=== PATIENT | female | born 1955 | race Caucasian/White ===

== ENCOUNTER → 2018-01-16 | Outpatient (CLI) | payer BC ==
--- NOTE | 2018-01-19 09:59 | MM ---
Reason for exam: screening (asymptomatic). Last mammogram was performed 3 years and 5 months ago. History: Family history of breast cancer in 2 aunts and breast cancer in 2 cousins. Physical Findings: A clinical breast exam by your physician is recommended on an annual basis and results should be correlated with mammographic findings. MG Screening Mammo w CAD Bilateral CC and MLO view(s) were taken. Prior study comparison: August 23, 2014, bilateral MG screening mammo w CAD. December 21, 2008, mammogram, performed at [facility]. There are scattered fibroglandular densities. No significant changes when compared with prior studies. ASSESSMENT: Benign, BI-RAD 2 RECOMMENDATION: Routine screening mammogram of both breasts in 1 year.
== END | disposition home or self-care (01) ==
LOC: RADMAMWWP 07:38
PROVIDERS: ATTEND Family Medicine
DX: Z12.31 Encounter for screening mammogram for malignant neoplasm of breast (principal)
CPT/HCPCS: 77067

== ENCOUNTER → 2018-11-11 | Outpatient (CLI) | payer MEDICARE ==
[2018-11-12 01:33] LABS: Dermato. farinae IgE <0.10 kU/L
[2018-11-12 01:34] LABS: Cat Epith & Dander IgE <0.10 kU/L; Dog Dander IgE <0.10 kU/L
[2018-11-12 01:35] LABS: Alternaria alternata IgE <0.10 kU/L; Aspergillus fumagatus IgE <0.10 kU/L; Cockroach IgE <0.10 kU/L
[2018-11-12 01:36] LABS: Birch IgE <0.10 kU/L; Elm IgE <0.10 kU/L; Maple (Box Elder) IgE <0.10 kU/L; Oak IgE <0.10 kU/L
[2018-11-12 01:37] LABS: Ragweed,Common IgE <0.10 kU/L; Red Top (Bentgrass) IgE <0.10 kU/L
[2018-11-12 01:39] LABS: Codfish IgE <0.10 kU/L
[2018-11-12 01:40] LABS: Clam IgE <0.10 kU/L; Peanut IgE <0.10 kU/L; Shrimp IgE <0.10 kU/L; Soybean IgE <0.10 kU/L; Walnut IgE (Food) <0.10 kU/L
[2018-11-12 01:41] LABS: Egg White IgE <0.10 kU/L; Scallop IgE <0.10 kU/L
== END | disposition home or self-care (01) ==
LOC: LABWHC1 16:09
PROVIDERS: ATTEND Internal Medicine Critical Care Medicine
DX: J45.909 Unspecified asthma, uncomplicated (principal)
CPT/HCPCS: 36415; 82785; 86003

== ENCOUNTER → 2020-01-20 | Outpatient (CLI) | payer MEDICARE ==
--- NOTE | 2020-01-20 12:21 | BD ---
EXAMINATION TYPE: Axial Bone Density DATE OF EXAM: 01/20/2020 COMPARISON: NONE CLINICAL HISTORY: Height: 5 FT 3 1/2 IN Weight: 176 FRAX RISK QUESTIONS: Alcohol (3 or more units per day): NO Family History (Parent hip fracture): NO Glucocorticoids (More than 3mos): NO (Ex: prednisone, prednisolone, methylprednisolone, dexamethasone, and hydrocortisone). History of Fracture in Adulthood: NO Secondary Osteoporosis: 1. Type 1 Diabetes: NO 2. Hyperthyroidism: NO 3. Menopause before 45: YES 4. Malnutrition: NO 5. Chronic liver disease: NO Rheumatoid Arthritis: NO Current Tobacco Use: NO RISK FACTORS HISTORY OF: Family History of Osteoporosis: NO Active: YES Postmenopausal woman: TOTAL HYST LATE 30'S Take estrogen and/or progesterone medications: TOOK FOR SEV YEARS AFTER HYST Lost more than 2 inches in height since high school: YES MEDICATIONS: Additional Medications: SINGULAIR, INHALERS FOR ASTHMA Additional History: EXAM MEASUREMENTS: Bone mineral densitometry was performed using the [employer] System. Bone mineral density as measured about the Lumbar spine is: ----- L1-L4(G/cm2): 1.141 T Score Values are as follows: ----- L2: -1.0 ----- L3: 0.2 ----- L4: 0.4 ----- L1-L4: -0.3 BASELINE Bone mineral density about the R hip (g/cm2): 0.909 Bone mineral density about the L hip (g/cm2): 0.940 T Score values are as follows: -----R Neck: -0.9 -----L Neck: -0.7 -----R Total: -0.5 -----L Total: -0.4 BASELINE IMPRESSION: No evidence for osteoporosis or osteopenia. NOTE: T-SCORE=SD OF THE YOUNG ADULT MEAN.
== END | disposition home or self-care (01) ==
LOC: RADBDWWP 08:40
PROVIDERS: ATTEND Family Medicine
DX: M81.0 Age-related osteoporosis without current pathological fracture (principal)
CPT/HCPCS: 77080

== ENCOUNTER → 2020-01-31 | Outpatient (CLI) | payer MEDICARE ==
--- NOTE | 2020-02-02 11:20 | MM ---
Reason for exam: screening (asymptomatic). Last mammogram was performed 2 years ago. History: Patient is postmenopausal. Family history of breast cancer in 2 aunts and breast cancer in 2 cousins. Took estrogen for 2 years beginning at age 28. Physical Findings: A clinical breast exam by your physician is recommended on an annual basis and results should be correlated with mammographic findings. MG Screening Mammo w CAD Bilateral CC and MLO view(s) were taken. Prior study comparison: January 16, 2018, bilateral MG screening mammo w CAD. August 23, 2014, bilateral MG screening mammo w CAD. The breast tissue is heterogeneously dense. This may lower the sensitivity of mammography. There is chronic nodularity in the right breast. No significant changes when compared with prior studies. ASSESSMENT: Benign, BI-RAD 2 RECOMMENDATION: Routine screening mammogram of both breasts in 1 year.
== END | disposition home or self-care (01) ==
LOC: RADMAMWWP 08:28
PROVIDERS: ATTEND Family Medicine
DX: Z12.31 Encounter for screening mammogram for malignant neoplasm of breast (principal)
CPT/HCPCS: 77067

== ENCOUNTER → 2021-01-30 | Outpatient (CLI) | payer MEDICARE ==
[2021-01-30 07:40] LABS: African American GFR (CKD) >90 (>60 ml/min/1.73 sqM); Blood Urea Nitrogen 9 mg/dL (7-17); Non-African American GFR(CKD) >90 (>60 ml/min/1.73 sqM)
--- NOTE | 2021-01-30 11:44 | CT ---
EXAMINATION TYPE: CT abdomen pelvis wo/w con DATE OF EXAM: 01/30/2021 COMPARISON: CT dated 11/19/2012 HISTORY: Diverticulosis, idiopathic pancreatitis CT DLP: 1157.20 mGycm Automated exposure control for dose reduction was used. TECHNIQUE: Helical acquisition of images was performed from the lung bases through the pelvis. CONTRAST: Performed with Oral Contrast and with IV Contrast, patient injected with 100 mL of Isovue 300. FINDINGS: LUNG BASES: No significant abnormality is appreciated. LIVER/GB: Low density within the liver may be due to underlying hepatic steatosis.. PANCREAS: No significant abnormality is seen. SPLEEN: No significant abnormality is seen. ADRENALS: No significant abnormality is seen. KIDNEYS: Cortical cyst noted within the midpole the right kidney measures approximately 13 mm, there is no hydronephrosis or nephrolithiasis. FREE AIR: No free air is visualized. RETROPERITONEAL ADENOPATHY: None visualized REPRODUCTIVE ORGANS: Not seen URINARY BLADDER: No significant abnormality is seen. PELVIC ADENOPATHY: None visualized. OSSEOUS STRUCTURES: There is a spinal curvature present. Degenerative disc changes and facet arthrop athy noted in the lumbar spine.. BOWEL: At the level of the right colon at the hepatic flexure there is some thickening of the ascend ing colon, proximal transverse colon not seen on prior CT.. OTHER: Contrast has not coursed throughout the colon due to timing of the exam IMPRESSION: INDETERMINATE RIGHT COLONIC WALL THICKENING, BOWEL SURVEILLANCE HAS NOT BEEN PERFORMED IT SHOULD BE C ONSIDERED TO EXCLUDE AN UNDERLYING MASS. POSTOP CHANGES.
== END | disposition home or self-care (01) ==
LOC: RADCTMAIN 05:58
PROVIDERS: ATTEND Family Medicine
DX: K57.90 Diverticulosis of intestine, part unspecified, without perforation or abscess without bleeding (principal); K85.00 Idiopathic acute pancreatitis without necrosis or infection
CPT/HCPCS: 82565; 84520; 74178; 36415; Q9967 ×2

== ENCOUNTER → 2021-08-31 | Outpatient (CLI) | payer MEDICARE ==
[2021-08-31 11:39] LABS: Partial Thromboplastin Time 27.8 sec (22.0-30.0); Prothrombin Time 11.3 sec (9.0-12.0)
[2021-08-31 16:03] LABS: Basophils # (A) 0.04 X 10*3/uL (0.00-0.10); Basophils % (A) 0.8 %; Eosinophils # (A) 0.05 X 10*3/uL (0.04-0.35); HCT 47.4 % (37.2-46.3); HGB 14.9 g/dL (12.0-15.0); Immature Grans, Automated 0.2 %; Lymphocytes # (A) 1.52 X 10*3/uL (0.90-5.00); Lymphocytes % (A) 29.1 %; MCH 30.1 pg (27.0-32.0); MCHC 31.4 g/dL (32.0-37.0); MCV 95.8 fL (80.0-97.0); Mean Platelet Volume 9.6 fL (9.5-12.2); Monocytes # (A) 0.38 X 10*3/uL (0.20-1.00); Monocytes % (A) 7.3 %; NRBC Per 100 WBC 0 /100 WBCS (0.0-0.0); Neutrophils # (A) 3.23 X 10*3/uL (1.80-7.70); Neutrophils % (A) 61.6 %; Platelet Count 295 X 10*3/uL (140-440); RBC 4.95 X 10*6/uL (4.10-5.20); RDW 12.6 % (11.5-14.5); WBC 5.23 X 10*3/uL (4.50-10.00)
[2021-08-31 16:35] LABS: ALT 17 U/L (8-44); AST 27 U/L (13-35); Albumin 4.6 g/dL (3.8-4.9); Albumin/Globulin Ratio 1.71 (1.60-3.17); Alkaline Phosphatase 68 U/L (41-126); BUN/Creat Ratio 17.01 Ratio (12.00-20.00); Blood Urea Nitrogen 12.5 mg/dL (9.0-27.0); Calcium 9.9 mg/dL (8.7-10.3); Carbon Dioxide 24.9 mmol/L (20.0-27.5); Chloride 107 mmol/L (96-109); Chol/HDL Ratio 2.43 Ratio; Globulin 2.7 g/dL (1.6-3.3); Glucose 102 mg/dL (70-110); LDL Cholesterol,Calculated 79.9 mg/dL (0.0-131.0); Non-African American GFR(CKD) 84.5 (60.0-200.0); Potassium 4.5 mmol/L (3.5-5.5); Sodium 142 mmol/L (135-145); Total Protein 7.2 g/dL (6.2-8.2); VLDL Calculation 13.08 mg/dL (5.00-40.00)
[2021-08-31 17:47] LABS: Erythrocyte Sedimentation Rate 5 mm/Hr (0-30)
== END | disposition home or self-care (01) ==
LOC: LABWHC1 09:27
PROVIDERS: ATTEND Psychiatry & Neurology Neurology
DX: I63.9 Cerebral infarction, unspecified (principal); Z79.899 Other long term (current) drug therapy
CPT/HCPCS: 36415; 80053; 80061; 82607; 82747; 84439; 84443; 85025; 85610; 85652; 85730

== ENCOUNTER → 2023-02-14 | Outpatient (CLI) | payer MEDICARE ==
--- NOTE | 2023-02-14 09:09 | BD ---
EXAMINATION TYPE: Axial Bone Density DATE OF EXAM: 02/14/2023 CLINICAL HISTORY: 67 years old Female. ICD-10 CODE: M810 KNOWN OSTEO Height: 5 ft 4 in Weight: 163 FRAX RISK QUESTIONS: Alcohol (3 or more units per day): no Family History (Parent hip fracture): no Glucocorticoids (More than 3mos): no (Ex: prednisone, prednisolone, methylprednisolone, dexamethasone, and hydrocortisone). History of Fracture in Adulthood: lumbar fx no surg Secondary Osteoporosis: 1. Type 1 Diabetes: no 2. Hyperthyroidism: no 3. Menopause before 45: yes 4. Malnutrition: no 5. Chronic liver disease: no Rheumatoid Arthritis: no Current Tobacco Use: RISK FACTORS HISTORY OF: Surgery to Spine/Hip(right/left)/Wrist (right/left): no Family History of Osteoporosis: yes Active: yes Diet low in dairy products/other sources of calcium: no Postmenopausal woman: yes Take estrogen and/or progesterone medications: no Lost more than 2 inches in height since high school: no Frequent falls: yes Poor Health: good Hyperparathyroidism: no Adrenal Insufficiency: no MEDICATIONS: Additional Medications: Namenda, Aricept, Pulmicort, albuterol as needed Additional History: EXAM MEASUREMENTS: Bone mineral densitometry was performed using the [employer] System. Bone mineral density as measured about the Lumbar spine is: ----- L1-L4(G/cm2): 1.079 T Score Values are as follows: ----- L1: -1.2 ----- L2: -1.4 ----- L3: -0.8 ----- L4: 0.0 ----- L1-L4: -0.8 Z Score Values are as follows: ----- L1: 0.1 ----- L2: 0.0 ----- L3: 0.5 ----- L4: 1.3 ----- L1-L4: 0.5 Bone mineral density has: decreased -5.4 % since study of: 2019 Bone mineral density about the R hip (g/cm2): 0.858 Bone mineral density about the L hip (g/cm2): 0.840 T Score values are as follows: -----R Neck: -1.3 -----L Neck: -1.4 -----R Total: -1.2 -----L Total: -1.1 Z Score values are as follows: -----R Neck: 0.2 -----L Neck: 0.0 -----R Total: 0.0 -----L Total: 0.1 Bone mineral density has: decreased -9.9 % since study of: 2019 FRAX%s: The graph provided illustrates a 15.2 % chance for a major osteoporotic fx and a 1.9 % chance for the hips probability for fx in 10 years time. IMPRESSION: Osteopenia (T Score between -2.5 and -1). There is slightly increased risk of fracture and the patient may be considered for treatment. Re-Screen 2-5 years. NOTE: T-SCORE=SD OF THE YOUNG ADULT MEAN.
--- NOTE | 2023-02-14 10:24 | MM ---
Reason for Exam: Screening (asymptomatic). Last mammogram was performed 3 year(s) and 0 month(s) ago. Patient History: Menarche at age 10. First Full-Term at age 15. Left ovary removed at age 28. Right ovary removed at age 28. Hysterectomy at age 28. Postmenopausal. Estrogen for 2 years from age 28 until age 30. Maternal cousin had breast cancer. Maternal cousin had breast cancer, age 35. Maternal aunt had breast cancer, age 60. Maternal aunt had breast cancer. Risk Values: Yani 5 year model risk: 1.2%. NCI Lifetime model risk: 3.9%. Prior Study Comparison: 08/23/2014 Bilateral Screening Mammogram, [facility]. 01/16/2018 Bilateral Screening Mammogram, [facility]. 01/31/2020 Bilateral Screening Mammogram, [facility]. Tissue Density: The breast tissue is heterogeneously dense. This may lower the sensitivity of mammography. Findings: Analyzed By CAD. There is no suspicious group of microcalcifications or new suspicious mass in either breast. Chronic nodularity within the right breast. Overall Assessment: Benign, BI-RAD 2 Management: Screening Mammogram of both breasts in 1 year. A clinical breast exam by your physician is recommended on an annual basis and results should be correlated with mammographic findings. Note on Yani scores and lifetime risk: 1. A Yani score greater than 3% is considered moderate risk. If this is the case, consider specialist referral to assess eligibility for a risk reducing agent. If overall lifetime risk for the development of breast cancer is 20% or higher, the patient may qualify for future screening with alternating mammogram and breast MRI. Electronically signed and approved by: Naman Marroquin D.O.
== END | disposition home or self-care (01) ==
LOC: RADMAMWWP 08:11
PROVIDERS: ATTEND Family Medicine
DX: Z12.31 Encounter for screening mammogram for malignant neoplasm of breast (principal); M81.0 Age-related osteoporosis without current pathological fracture; M85.89 Other specified disorders of bone density and structure, multiple sites; Z78.0 Asymptomatic menopausal state; Z80.3 Family history of malignant neoplasm of breast
CPT/HCPCS: 77063; 77067; 77080

== ENCOUNTER → 2023-03-24 | Outpatient (CLI) | payer MEDICARE ==
--- NOTE | 2023-03-25 22:49 | MR ---
EXAMINATION TYPE: MR brain/orbits wo/w con DATE OF EXAM: 03/24/2023 9:23 PM CLINICAL INDICATION:Female, 67 years old with history of H53.462; PHH, Optic atrophy, Hemianopsia, villarreal spected stroke COMPARISON: 09/10/2021. 11/16/2012. TECHNIQUE: Multi planar, multi sequence imaging was performed through the orbits/face. Post contrast imaging was performed after the administration of 7 cc of Gadavist intravenously. FINDINGS, ORBITS: The globes appear symmetrical. Signal intensity of the globes and optic nerves ar e within normal limits. The intraorbital fat appears preserved. Both lacrimal glands are unremarkab le. The extraocular muscles appear symmetric. After administration of contrast, no abnormal enhanceme nt is seen. FINDINGS, BRAIN: Dilation in proportion to cerebral atrophy. The hamilton-white junctions, ventricular sy stem, and cisterns do appear unremarkable. Diffusion-weighted imaging shows no evidence of restricte d diffusion. Scattered foci of high T2 signal intensity are seen within the periventricular white ma tter. Cavernous sinus is within normal limits. After administration of contrast, no abnormal enhanc ement is seen within the brain. The bone marrow signal is within normal limits. There is high T2 edema around the left temporal susan bular joint. Some mild enhancement which is asymmetric on the left temporal mandibular joint is also present. Paranasal sinuses and mastoid air cells: No significant paranasal sinus disease. Visualized orbits: Orbital contents are intact. IMPRESSION: 1. No evidence of intraorbital mass or significant abnormality. 2. No evidence of intracranial mass nor acute/subacute CVA accident. 3. Cerebral atrophy with proportional dilation of the ventricular system. 4. Nonspecific white matter changes are identified likely small vessel ischemic disease. 5. Reactive edema around the temporomandibular joint on the left.
== END | disposition home or self-care (01) ==
LOC: RADMRIMAIN 20:30
PROVIDERS: ATTEND Ophthalmology
DX: H53.462 Homonymous bilateral field defects, left side (principal); G31.9 Degenerative disease of nervous system, unspecified; R60.0 Localized edema; R90.82 White matter disease, unspecified
CPT/HCPCS: 70543; 70553; A9585

== ENCOUNTER → 2024-11-05 | Outpatient (CLI) | payer MEDICARE ==
--- NOTE | 2024-11-05 12:17 | MR ---
EXAMINATION TYPE: MR brain wo con DATE OF EXAM: 11/05/2024 11:40 AM COMPARISON: 03/24/2023. CLINICAL INDICATION: Female, 69 years old with history of G31.84 mild cognitive impairment; PHH, linh ry loss, vascular dementia TECHNIQUE: Multi planar, multi sequence imaging was performed through the brain including: T1, T2, In version recovery, Diffusion weighted imaging, and gradient echo imaging. No gadolinium was given. FINDINGS: Mild cerebral atrophy with proportional dilation of ventricular system. Scattered foci of high T2 s ignal intensity are seen within the periventricular white matter. Midline structures show no abnormal ity. Diffusion-weighted imaging shows no evidence of restricted diffusion. The susceptibility weighte d images do not reveal any evidence for micro-hemorrhage. The bone marrow signal is within normal limits. Paranasal sinuses and mastoid air cells: No significant paranasal sinus disease. Visualized orbits: Orbital contents are intact. IMPRESSION: 1. No evidence of intracranial mass or acute/subacute infarct. 2. Mild Nonspecific white matter changes, likely secondary to small vessel ischemic disease. [facility], , 11/05/2024 12:14 PM
== END | disposition home or self-care (01) ==
LOC: RADMRIMAIN 11:10
PROVIDERS: ATTEND Psychiatry & Neurology Neurology
DX: G31.84 Mild cognitive impairment of uncertain or unknown etiology (principal); G30.1 Alzheimer's disease with late onset; R25.1 Tremor, unspecified; R90.82 White matter disease, unspecified
CPT/HCPCS: 70551